=== PATIENT | male | born 1945 | race Caucasian/White ===

== ENCOUNTER 2017-01-21 12:20 | Emergency (ER) | payer OTHER ==
[~2017-01-21 12:20] MED LIST: ASPIRIN 81 LOW81 MG PO; CIALIS10 MG; COUMADIN5 MG PO; FLOMAX0.4 MG PO; KEPPRA500 MG PO; LISINOPRIL2.5 MG PO; LOVENOX30 MG/0.3 SC; LOVENOX80 MG/0.8 SC; MULTIPLE VITAMIN PO; VICODIN EQUIVAL1 TAB PO; VITAMIN C TR500 M1 PO
--- NOTE | 2017-01-21 14:25 | DIAGNOSTIC IMAGING REPORT ---
PROCEDURE: XR CHEST 2 VIEW INDICATION: COUGH TECHNIQUE: PA and lateral view. COMPARISON: Chest x-ray 02/05/2016 FINDINGS: Mild bibasilar parenchymal stranding, with progression on the left side. Cardiovascular structures are normal. Bony thorax is unremarkable. IMPRESSION: 1. Mild bibasilar scarring with new left basilar infiltrate/atelectasis
--- NOTE | 2017-01-21 14:38 | ED NURSING NOTES ---
Clinical Report - Nurses [facility] [address] [place] [address] 01/21/2017 12:22 Patient: ELISA AVILA TRIAGE Acuity: LEVEL 2. Chief Complaint: CHEST PAIN and NECK PAIN. Alert. No acute distress. SEPSIS SCREEN: Sepsis Screen. Negative (no infection suspected/documented). --12:40 Yesenia Muniz R.N. 12:31 01/21/17. BP: 113/66. HR: 67. RR: 18. O2 saturation: 97% on room air. Temp: 97.9 F (oral). Pain level now: 5/10. --12:40 Yesenia Muniz R.N. Weight: 112.4 kg stated. Height/Length: 74 inches Per Patient. BMI: 31.8. --12:38 Yesenia Muniz R.N. Medications Cialis Oral 5mg, daily. Flomax Oral. Lisinopril Oral 20 mg, 2x a day. --12:35 Yesenia Muniz R.N. LevETIRAcetam ER Oral, 2 x day. --12:36 Yesenia Muniz R.N. Hydrochlorothiazide Oral 25 mg, daily. --12:36 Yesenia Muniz R.N. Tamsulosin HCl Oral 0.4 mg, at bedtime. --12:37 Yesenia Muniz R.N. Xarelto Oral (Tablet 20 mg), daily. --12:37 Yesenia Muniz R.N. Medication/allergy information source: the patient. --12:40 Yesenia Muniz R.N. Allergies No Known Drug Allergy. --12:35 Yesenia Muniz R.N. History Arrived by private vehicle. Historian: patient. Accompanied by spouse. Primary physician (Dolores). This started last night. Describes the quality as sharp. Relates location as in the central chest area and neck. Notes pain level as 5/10 on arrival. He has had difficulty breathing. No nausea or vomiting. 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 SOCIAL HX: Current every day light tobacco smoker- less than 1/2 a pack per day. Heavy alcohol use; consumes liquor daily. No drug use. NUTRITIONAL RISK ASSESSMENT: The nutritional risk assessment revealed no deficiencies. FUNCTIONAL ASSESSMENT: Functional assessment: no impairments noted. LEARNING NEEDS ASSESSMENT: The learning needs assessment revealed no barriers. FALL RISK ASSESSMENT: Fall risk assessment completed. Risk factors identified include patient age greater than 65 years. Fall interventions initiated. Patient placed on stretcher. Side rails up x2. Brakes on Bed in low position. Call light in reach of patient. SKIN INTEGRITY ASSESSMENT: Skin integrity risk assessment completed. No skin integrity risk identified. --12:40 Yesenia Muniz R.N. PROBLEMS: Pulmonary Embolism. Heart Disease. BPH. Renal Colic. Hypertension. Nephrolithiasis. --12:37 Yesenia Muniz R.N. ADDITIONAL SURGERIES: Lithotripsy. Nephrolithiasis. --12:37 Yesenia Muniz R.N. Assessment GENERAL / NEURO / PSYCH: Alert. Oriented X 4. Appears in no acute distress. [place] Coma Scale: 15- eyes open spontaneously (4); best verbal response- oriented x 4 (5); best motor response- obeys commands (6). Patient appears calm and cooperative. RESPIRATORY: Respirations not labored. CVS: Normal sinus rhythm noted. Capillary refill less than 2 seconds. GI / : Abdomen soft and nontender. SKIN: Mucous membranes are pink. Skin is warm and dry. --12:40 Yesenia Muniz R.N. Interventions ID band on patient. To treatment room. Ambulatory. --12:40 Yesenia Muniz R.N. NURSING PROGRESS NOTES EKG time: (1240). EKG was performed by a tech and shown to the ED physician. Patient ready for evaluation- chart flagged and ED physician notified. --12:40 Yesenia Muniz R.N. Oxygen administered by nasal cannula at 2 liters. generation mechanic helper, pulse oximeter and NIBP monitor placed on patient; monitor alarms on. Patient gowned. Two patient identifiers checked. Checked patient name and birthdate. Call light placed in reach. Side rails up x 1. Bed placed in lowest position. Brakes of bed on. --12:41 Yesenia Muniz R.N. 12:41 01/21/2017 Site #1 started via IV in the left hand with an 20g angiocath, with aseptic technique and good blood return; one attempt. Blood drawn: rainbow set. Labeled in the presence of the patient and sent to the lab. Saline lock flushed with 10 mL saline. --12:41 Yesenia Muniz R.N. 12:56 01/21/2017 Started bag #1 1000 mL IV Fluids IV NS (Saline); at 999 mL/hr over 1 hour(s) via site #1 via IV pump. Allergies verified and confirmed 5 rights. IV patency established. IV site checked: no pain, redness, or swelling. IV flushed thoroughly pre- and post-medication administration. --12:56 Yesenia Muniz R.N. 12:57 01/21/2017 Aspirin PO 325 mg given. Allergies verified and confirmed 5 rights. --12:57 Yesenia Muniz R.N. Checked patient name and birthdate. Throat swab obtained for rapid strep; labeled in the presence of the patient and sent to lab. --13:17 Yesenia Muniz R.N. 13:49 01/21/17. Checked patient name and birthdate: patient confirmed urine collected with return of yellow-colored clear urine; sample sent to lab for urinalysis. Specimen labeled in the presence of the patient. --13:49 Yesenia Muniz R.N. 14:25 01/21/2017 IV Fluids IV NS Discontinued: bag #1 infused. Total amount infused: 1000 mL. IV patency established. IV site checked: no pain, redness, or swelling. IV flushed thoroughly. --14:25 Stephanie Quinonez R.N. 14:46 01/21/2017 Azithromycin PO 500 mg given. Allergies verified and confirmed 5 rights. --14:46 Yesenia Muniz R.N. DISPOSITION / DISCHARGE Departure time: 15:15 Jan 21 2017. Condition at departure: improved and stable. No learning barriers present. Discharge instructions provided and reviewed with the patient. Reviewed medication(s) side effects, precautions, dosing and course information. Prescription(s) given to the patient. Patient verbalized understanding. Written instructions provided in Khmer. The patient was discharged by the physician. He was discharged home and accompanied by spouse. He left the Emergency Department ambulatory and via private vehicle. Spouse driving. --15:18 Yesenia Muniz R.N. 15:18 01/21/17. BP: 125/56. HR: 64. RR: 12. O2 saturation: 96% on room air. --15:18 Yesenia Muniz R.N. 15:11 01/21/2017 Site #1 removed upon discharge. Catheter intact. Manual pressure and bandage applied. --15:26 Yesenia Muinz R.N. Locked/Released at 01/21/2017 15:26 by Yesenia Muniz R.N.
--- NOTE | 2017-01-21 14:38 | ED CLINICAL REPORT ---
Clinical Report - Physicians/Mid Levels [facility] [address] [place] [address] 01/21/2017 12:22 Patient: ELISA AVILA Time Seen: 12:43; initial patient contact. Arrived- By private vehicle. Historian- patient. HISTORY OF PRESENT ILLNESS Chief Complaint: CHEST DISCOMFORT. At its maximum, severity described as mild. When seen in the E.D., severity described as mild. Modifying factors. Not worsened by anything. Not relieved by anything. This started last night and is still present but is better now. Onset during light activity. It is described as "pain" and it is described as located in the central chest area and neck. No radiation. No nausea, vomiting, difficulty breathing or diaphoresis. Similar symptoms previously: None. Recent medical care: The patient was seen recently in a clinic. REVIEW OF SYSTEMS No fever, chills, pedal edema, calf pain or skin rash. He has had a sore throat and a cough. All systems otherwise negative, except as recorded above. PAST HISTORY Pulmonary Embolism. Heart Disease. BPH. Renal Colic. Hypertension. Nephrolithiasis. ADDITIONAL SURGERIES: Lithotripsy. Nephrolithiasis. Medications: Xarelto Oral (Tablet 20 mg), daily. Tamsulosin HCl Oral 0.4 mg, at bedtime. Hydrochlorothiazide Oral 25 mg, daily. LevETIRAcetam ER Oral, 2 x day. Cialis Oral 5mg, daily. Flomax Oral. Lisinopril Oral 20 mg, 2x a day. Allergies: No Known Drug Allergy. SOCIAL HISTORY Current every day smoker. Regular alcohol use. No drug use. ADDITIONAL NOTES The nursing notes have been reviewed. PHYSICAL EXAM Vital Signs: 01/21/2017 12:31 BP: 113/66. HR: 67. RR: 18. O2 saturation: 97%. Temp: 97.9 F. Pain level now: 5/10. Have been reviewed as normal. Appearance: Alert. Oriented X3. No acute distress. ENT: Mild generalized pharyngeal erythema with right tonsillar swelling and left tonsillar swelling. No right tonsillar exudate or left tonsillar exudate. The mucous membranes are not dry. Neck: Normal inspection. Neck supple. No lymphadenopathy. CVS: Normal heart rate and rhythm. Heart sounds normal. Respiratory: No respiratory distress. Mild rales in the left lung base posteriorly. No prolonged expiration. Skin: Skin warm and dry. Normal skin color. Extremities: No calf tenderness. No lower extremity edema. Neuro: Oriented X 3. LABS, X-RAYS, AND EKG EKG: EKG time: (1240). No acute process. No acute ischemia. Normal sinus rhythm. Rate: 68. Normal P waves. Normal LAURITA. Wide QRS- intraventricular conduction delay. RBBB. Normal axis. Normal QT and QTc. T wave inversion in lead V1, V2, V3 and V4 (unchanged from 02/05/16). EKG unchanged when compared with prior EKG. The study has been interpreted contemporaneously by me. The study has been independently viewed by me. The EKG appears to be a good tracing. Interpretation time: 1240. Chest X-ray: (. Mild bibasilar scarring with new left basilar infiltrate/atelectasis). Views: PA and lateral. Technique: good. The X-rays were independently viewed by me, interpreted by the radiologist and discussed with the radiologist. Prior films were not available for comparison. Laboratory Tests: UA-Culture if indicated: (LYNN: 01/21/2017 13:40) ( MsgRcvd 01/21/2017 14:01) Final results Test Result Flag Units (Reference) URINE COLOR YELLOW URINE APPEARANCE CLEAR URINE GLUCOSE NEGATIVE (NEGATIVE) URINE BILIRUBIN NEGATIVE (NEGATIVE) URINE KETONE NEGATIVE (NEGATIVE) URINE SPECIFIC GRAVITY 1.010 (1.010-1.030) URINE PH 5.5 (5.0-8.0) URINE PROTEIN NEGATIVE (NEGATIVE) URINE UROBILINOGEN 0.2 EU/dL (0.2-1.0) URINE NITRITE NEGATIVE (NEGATIVE) URINE BLOOD NEGATIVE (NEGATIVE) URINE LEUK ESTERASE NEGATIVE (NEGATIVE) URINE RBC NONE SEEN rbc/hpf (0-1) URINE WBC 0-1 wbc/hpf (0-1) URINE EPITHELIAL CELLS 0-1 EPI/hpf (0-5) URINE BACTERIA NONE SEEN (NONE SEEN) URINE COMMENT CULT NOT INDICATED URINE CULTURES ARE SET-UP BASED ON THE FOLLOWING CRITERIA:POSITIVE NITRITEPOSITIVE LEUKOCYTE ESTERASEGREATER THAN 10 WHITE BLOOD CELLSMODERATE (2+) OR GREATER BACTERIA CBC w Diff: (LYNN: 01/21/2017 12:50) ( [facility] [place] 01/21/2017 13:04) Final results Test Result Flag Units (Reference) WHITE BLOOD COUNT 12.4 H K/uL (4.5-11.5) RED BLOOD COUNT 5.24 M/uL (4.50-5.90) HEMOGLOBIN 15.8 gm/dL (13.5-17.5) HEMATOCRIT 47.1 % (41.0-53.0) MEAN CELL VOLUME 90 fL (80-100) MEAN CORPUSCULAR HGB 30 pg (26-34) MEAN CORPUSCULAR HGB CONC 34 g/dL (31-37) RED CELL DISTRIBUTION WIDTH 13.3 % (11.6-14.8) PLATELET COUNT 151 K/uL (150-400) NEUTROPHIL % 82.5 H % (50-75) LYMPH % 9.6 L % (25-40) MONO % 6.9 % (3-14) EOSINOPHIL % 0.6 % (0-4) BASOPHIL % 0.4 % (0-2) PT with INR: (LYNN: 01/21/2017 12:50) ( [facility] [place]21[place] 13:18) Final results Test Result Flag Units (Reference) INR 1.4 H (0.8-1.2) Low Intensity Therapy: INR 1.5-2.0 PT range 18.5-23.1Mod.Intensity Therapy: INR 2.0-3.0 PT range 23.1-31.5High Intensity Therapy: INR 2.5-3.5 PT range 27.4-35.5High Intensity Therapy 2: INR 3.0-4.0 PT range 31.5-39.3 APTT 28 SECONDS (24-34) D-DIMER QUANTITATIVE < 0.27 L ug/mLFEU (0.27-0.52) The primary value of this quantitative assay relates toits negative predictive value (i.e. exclusion) of pulmonaryembolism/deep vein thrombosis/DIC.Elevated levels of d-dimer may also occur with:, age, cancer, inflammation, liver disease,post-op, infection, hematoma, coronary disease, peripheralarteriopathy, bleeding disorders and thrombolytic treatment.Results should be correlated with other clinical andradiological data.Testing Methodology: Latex Immunoassay BNP: (LYNN: 01/21/2017 12:50) ( [facility] 01/21/2017 13:26) Final results Test Result Flag Units (Reference) B-TYPE NATRIURETIC PEPTIDE 11.9 pg/ml (5-100) CHEM 13 PANEL: (LYNN: 01/21/2017 12:50) ( [facility] 01/21/2017 13:22) Final results Test Result Flag Units (Reference) GLUCOSE 131 H mg/dL (70-110) BUN 31 H mg/dL (7-18) CREATININE 1.4 H mg/dL (0.6-1.3) Estimated GFR 53.25 mL/min Estimated GFR- >60 mL/min Note: Persistent reduction over 3 months in eGFR<60 mL/min/1.73 m2 defines CKD. Patients with eGFR values>=60 mL/min/1.73 m2 may also have CKD if evidence ofpersistent proteinuria. Additional information may be foundat www.kidney.org. SODIUM 137 mmol/L (136-145) POTASSIUM 4.5 mmol/L (3.5-5.1) CHLORIDE 101 mmol/L (98-107) CARBON DIOXIDE 28 mmol/L (21-32) CALCIUM 9.4 mg/dL (8.5-10.1) TOTAL PROTEIN 7.5 g/dL (6.4-8.2) ALBUMIN 4.0 g/dL (3.3-5.0) BILIRUBIN, TOTAL 1.1 H mg/dL (0.0-1.0) ALKALINE PHOSPHATASE 67 U/L (46-116) AST (SGOT) 7 L U/L (15-37) ALT (SGPT) 22 U/L (12-78) MAGNESIUM 2.0 mg/dL (1.8-2.4) CPK 61 U/L (24-260) TROPONIN I <0.05 ng/mL (0.00-1.5) TROPONIN REFERENCE RANGE:<0.1 NEGATIVE0.1-1.5 INDETERMINANT>1.5 POSITIVE Culture, Strep Screen: (LYNN: 01/21/2017 13:10) ( MsgRcvd 01/21/2017 13:38) Final results Test Result Flag Units (Reference) RAPID STREP SCREEN - THROAT DATE: 01/21/17 NEGATIVE SCREEN: RAPID STREP SCREEN NEGATIVE; CONFIRMATION TO FOLLOW . PROGRESS AND PROCEDURES Disposition: Discharged home in good and improved condition. Condition: good. CLINICAL IMPRESSION Bacterial and lobar pneumonia. Empiric antibiotics given in the ED and prescribed. No hypoxemia, respiratory failure or sepsis. Chronic seasonal allergic rhinitis. INSTRUCTIONS Your Current Medications: CONTINUE TAKING THE FOLLOWING MEDICATIONS: Cialis Oral : 5mg daily. Flomax Oral. Hydrochlorothiazide Oral : 25 mg daily. LevETIRAcetam ER Oral : 2 x day. Lisinopril Oral : 20 mg 2x a day. Tamsulosin HCl Oral : 0.4 mg at bedtime. Xarelto Oral : Tablet 20 mg, daily. Prescription Medications: Zithromax 250 mg tablets: take 1 orally every day for 4 days. Total course 4 days. No refills. Substitution is permissible. (Loading dose given in the ED) Flonase nasal spray: 2 sprays to each nostril daily. Dispense one (1) unit. One refill. Substitution is permissible Follow-up: Follow up with your doctor in about two days. Call for an appointment. Blood pressure screening was not performed during this visit because the patient has an active diagnosis of hypertension. (Electronically signed by Scott Balderas Dr. 01/21/2017 22:22)
--- NOTE | 2017-01-21 14:38 | ED ORDER SUMMARY ---
..... Patient: ELISA AVILA OrderSheet [facility] VisitID: [id number] [place] [address] 71y, M Registration Date/Time: 01/21/2017 ORDER SHEET Weight: 112.4 kg (stated) Allergies: No Known Drug Allergy GENERAL ORDERS: Cardiac Panel Stat (12:45 01/21/2017 Yanira Damon) (Ack 12:47 Lexi) (12:56 MWinterer R.N.) PT with INR Urgent (12:45 01/21/2017 Yanira Damon) (Ack 12:47 Lexi) (12:56 MWinterer R.N.) PTT Urgent (12:45 01/21/2017 Yanira Damon) (Ack 12:47 Lexi) (12:56 MWinterer R.N.) UA-Culture if indicated Urgent (12:45 01/21/2017 Yanira Damon) (Ack 12:47 Lexi) (13:49 MWinterer R.N.) BNP Urgent (12:45 01/21/2017 Yanira Damon) (Ack 12:47 Lexi) (12:56 MWinterer R.N.) D-Dimer Urgent (12:45 01/21/2017 Yanira Damon) (Ack 12:47 Lexi) (12:56 MWinterer R.N.) EKG - ER Stat (12:45 01/21/2017 Yanira Damon) (12:49 Lexi) Culture, Strep Screen Urgent (12:56 01/21/2017 Yanira Damon) (Ack 13:12 Lexi) (13:16 MWinterer R.N.) Chest 2V Urgent (13:48 01/21/2017 Yanira Damon) (14:04 Lexi) MEDICATION ORDERS: Aspirin PO 325 mg (Do not crush or chew, NOW) (12:45 01/21/2017 Yanira Damon) (Ack 12:49 MWinterer R.N.) (12:57 MWinterer R.N.) Azithromycin PO 500 mg (NOW) (14:34 01/21/2017 Yanira Damon) (Ack 14:42 MWinterer R.N.) (14:46 MWinterer R.N.) IV FLUIDS: IV NS : initial bolus none -, then 1000 mL/hr for X1 (NOW) (12:44 01/21/2017 Yanira Damon) (Ack 12:49 MWinterer R.N.) (12:56 MWinterer R.N.) ORDER SHEET NOTES: [Electronically signed by Yesenia Muniz R.N. (15:26 01/21/2017)] [Electronically signed by Scott Balderas Dr. (22:22 01/21/2017)] [Electronically locked/signed by Yesenia Muniz R.N. (15:01/21/2017)]
--- NOTE | 2017-01-21 14:38 | ED ORDER SUMMARY ---
..... Patient: ELISA AVILA OrderSheet [facility] VisitID: [id number] [place] [address] 71y, M Registration Date/Time: 01/21/2017 ORDER SHEET Weight: 112.4 kg (stated) Allergies: No Known Drug Allergy GENERAL ORDERS: Cardiac Panel Stat (12:45 01/21/2017 Yanira Damon) (Ack 12:47 Lexi) (12:56 MWinterer R.N.) PT with INR Urgent (12:45 01/21/2017 Yanira Damon) (Ack 12:47 Lexi) (12:56 MWinterer R.N.) PTT Urgent (12:45 01/21/2017 Yanira Damon) (Ack 12:47 Lexi) (12:56 MWinterer R.N.) UA-Culture if indicated Urgent (12:45 01/21/2017 Yanira Damon) (Ack 12:47 Lexi) (13:49 MWinterer R.N.) BNP Urgent (12:45 01/21/2017 Yanira Damon) (Ack 12:47 Lexi) (12:56 MWinterer R.N.) D-Dimer Urgent (12:45 01/21/2017 Yanira Damon) (Ack 12:47 Lexi) (12:56 MWinterer R.N.) EKG - ER Stat (12:45 01/21/2017 Yanira Damon) (12:49 Lexi) Culture, Strep Screen Urgent (12:56 01/21/2017 Yanira aDmon) (Ack 13:12 Lexi) (13:16 MWinterer R.N.) Chest 2V Urgent (13:48 01/21/2017 Yanira Damon) (14:04 Lexi) MEDICATION ORDERS: Aspirin PO 325 mg (Do not crush or chew, NOW) (12:45 01/21/2017 Yanira Damon) (Ack 12:49 MWinterer R.N.) (12:57 MWinterer R.N.) Azithromycin PO 500 mg (NOW) (14:34 01/21/2017 Yanira Damon) (Ack 14:42 MWinterer R.N.) (14:46 MWinterer R.N.) IV FLUIDS: IV NS : initial bolus none -, then 1000 mL/hr for X1 (NOW) (12:44 01/21/2017 Yanira Damon) (Ack 12:49 MWinterer R.N.) (12:56 MWinterer R.N.) ORDER SHEET NOTES: [Electronically signed by Yesenia Muniz R.N. (15:26 01/21/2017)] [Electronically signed by Scott Balderas Dr. (22:22 01/21/2017)] [Electronically locked/signed by Yesenia Muniz R.N. (15:01/21/2017)]
--- NOTE | 2017-01-21 22:22 | ED MAR SUMMARY ---
..... Medication Administration Record [facility] [address] [place] [address] Patient: ELISA AVILA Visit ID: [id number] 71y, M Weight: 112.4 kg Height/Length: 74 in BMI: 31.8 ALLERGIES: No Known Drug Allergy Start 12:56 01/21/2017 Yesenia Muniz R.N., Stop 14:25 01/21/2017 Stephanie Quinonez R.N. Medication Administered: IV NS (SALINE), Dose: IV Fluids over 1 hour(s), Rate: 999 mL/hr, Dispensed: 1000 mL bag, Site: #1 left hand. Medication Ordered: IV NS : initial bolus none -, then 1000 mL/hr for X1 (NOW). Given 12:57 01/21/2017 Yesenia Muniz R.N. Medication Administered: ASPIRIN [PO], Dose: 325 mg PO. Medication Ordered: Aspirin PO 325 mg (Do not crush or chew, NOW). Given 14:46 01/21/2017 Yesenia Muniz R.N. Medication Administered: AZITHROMYCIN [PO], Dose: 500 mg PO. Medication Ordered: Azithromycin PO 500 mg (NOW).
--- NOTE | 2017-01-21 22:22 | ED MED RECONCILIATION SUMMARY ---
Patient: ELISA AVILA Medication Reconciliation Report [facility] VisitID: [id number] [place] [address] 71y, M Registration Date/Time: 01/21/2017 Weight: 112.4 kg Height/Length: 74 in. BMI: 31.8 ALLERGIES: No Known Drug Allergy The patient's Home Medications are listed below: CONTINUE TAKING THE FOLLOWING MEDICATIONS: Cialis Oral 5mg, daily Flomax Oral Hydrochlorothiazide Oral 25 mg, daily LevETIRAcetam ER Oral, 2 x day Lisinopril Oral 20 mg, 2x a day Tamsulosin HCl Oral 0.4 mg, at bedtime Xarelto Oral (20 mg), daily The source(s) of the original Home Medication information: patient The following Medications were given to the patient in the Emergency Department: IV NS IV Fluids bolus 0, then 999 mL/hr, administered: 01/21/2017 12:56:00 PM Aspirin [PO] PO 325 mg, administered: 01/21/2017 12:57:00 PM Azithromycin [PO] PO 500 mg, administered: 01/21/2017 2:46:00 PM The following Medications were prescribed to the patient: Zithromax 250 mg tablets: take 1 orally every day for 4 days. Total course 4 days. No refills. Substitution is permissible.(Loading dose given in the ED) -- Scott Balderas Dr. Flonase nasal spray: 2 sprays to each nostril daily. Dispense one (1) unit. One refill. Substitution is permissible -- Scott Balderas Dr.
--- NOTE | 2017-01-21 22:22 | ED DISCHARGE INSTRUCTIONS ---
Patient: ELISA AVILA General Instructions [facility] VisitID: [id number] [place] [address] 71y, M Registration Date/Time: 01/21/2017 Bacterial and lobar pneumonia. Empiric antibiotics given in the ED and prescribed. No hypoxemia, respiratory failure or sepsis. Chronic seasonal allergic rhinitis. INSTRUCTIONS Your Current Medications: CONTINUE TAKING THE FOLLOWING MEDICATIONS: Cialis Oral : 5mg daily. Flomax Oral. Hydrochlorothiazide Oral : 25 mg daily. LevETIRAcetam ER Oral : 2 x day. Lisinopril Oral : 20 mg 2x a day. Tamsulosin HCl Oral : 0.4 mg at bedtime. Xarelto Oral : Tablet 20 mg, daily. Prescription Medications: Zithromax 250 mg tablets: take 1 orally every day for 4 days. Total course 4 days. No refills. Substitution is permissible. (Loading dose given in the ED) Flonase nasal spray: 2 sprays to each nostril daily. Dispense one (1) unit. One refill. Substitution is permissible Follow-up: Follow up with your doctor in about two days. Call for an appointment. Blood pressure screening was not performed during this visit because the patient has an active diagnosis of hypertension. ADDITIONAL INFORMATION Pneumonia (Adult) Pneumonia is an infection deep within the lung, in the small air sacs (alveoli). It may be due to a virus or bacteria and is usually treated with an antibiotic. Severe cases require treatment in the hospital. Milder cases can be treated at home. Symptoms usually start to improve during the first2 days of treatment. Home Care: Rest at home for the first 23 days or until you feel stronger. When resuming activity, dont let yourself become overly tired. Avoid exposure to cigarette smoke (yours or others). You may use acetaminophen (Tylenol) or ibuprofen (Motrin, Advil) to control fever or pain, unless another medicine was prescribed. [NOTE: If you have chronic liver or kidney disease or ever had a stomach ulcer or GI bleeding, talk with your doctor before using these medicines.] (Aspirin should never be used in anyone under 18 years of age who is ill with a fever. It may cause severe liver damage.) Your appetite may be poor so a light diet is fine. Keep well hydrated by drinking 68 glasses of fluids per day (water, sport drinks such as Gatorade, sodas without caffeine, juices, tea, soup, etc.). This will help loosen secretions in the lung, making it easier for you to cough up the phlegm (sputum). If you also have heart or kidney disease, check with your doctor before you drink extra amounts of fluids. Finish all antibiotic medicine prescribed, even if you are feeling better after a few days. Follow Up with your doctor in the next 23 days (or as advised) to be sure you are responding properly to the medicine. [NOTE: If you are age 65 or older, or if you have chronic lung disease (asthma, emphysema or COPD), we recommendthe pneumococcal vaccination and a yearlyinfluenzavaccination(flu-shot) every . Ask your doctor about this.] Get Prompt Medical Attention if any of the following occur: Not getting better within the first 48 hours of treatment Increasing shortness of breath or rapid breathing (over 25 breaths/minute) Coughing up blood or increasing chest pain with breathing Fever of 100.4F (38C) oral or higher, not better with fever medication Increasing weakness, dizziness or fainting Increasing thirst or dry mouth Sinus pain, headache or a stiff neck Chest pain not caused by coughing Nasal Allergy Nasal Allergy, also called Allergic Rhinitis occurs after exposure to pollen, molds, mildew, animal dander (scales from animal skin, hair and feathers), dust, smoke and fumes. (These are called allergens). When pollen causes a nasal allergy it is commonly called Hay Fever. When these particles contact the lining of the nose, eyes, eyelids, sinuses or throat, they cause the cells to release a chemical called histamine. Histamine may cause a watery discharge from the eyes or nose. It may also cause violent sneezing, nasal congestion, itching of the eyes, nose, throat and mouth. Prevention: Nasal allergy cannot be cured but symptoms can be reduced. Avoid or reduce exposure to the allergen when possible, by the following measures: POLLEN Stay indoors on hot windy days during pollen season Keep windows and doors closed Use an air conditioner with an electrostatic filter DUST, MOLD & MILDEW Follow these measures, especially in the bedroom: When cleaning use vacuum vocational rehab consultant, oiled mops and damp cloths; dont stir up the dust. Once a week clean the salgado, woodwork and floors with a damp mop and vacuum carpets. Once a year clean the bed frame and springs (do this outside). Cover the box springs with plastic. Do not use mattress pads. Remove stuffed chairs and rugs from the bedroom. Discard old moldy books, furniture and bedding. Use synthetic fabrics for furniture, curtains and bedding. Avoid quilts, comforters, and stuffed toys. ANIMAL DANDER Remove all indoor pets (except fish and reptiles). Avoid all contact with furry animals. Avoid down-stuffed pillows and coats. Some persons are also sensitive to wool and should avoid it. OTHER IRRITANTS Do not smoke and avoid the smoke of others. Some persons are sensitive to cosmetic powder, baby powder and powdered laundry detergents. Therefore, these powders should be avoided. Home Care: DECONGESTANT pills and sprays (Sudafed, NeoSynephrine, Afrin), reduce tissue swelling and watery discharge. Overuse of nasal decongestant sprays may make symptoms worse. Do not use these more often than recommended. ANTIHISTAMINES block the release of histamine during the allergic response. Antihistamines are more effective when taken BEFORE symptoms develop. Unless a prescription antihistamine was prescribed, you may take CLARITIN (loratadine). (Claritin is an pluf-vlu-tktwmbg antihistamine that does not cause drowsiness.) STEROID nasal sprays (Beconase, Vancenase, Nasalide) or oral steroids (Prednisone) may also be prescribed for more severe symptoms. These help to reduce the local inflammation which adds to the allergic response. If you have ASTHMA, pollen season may make your asthma symptoms worse. It is important that you use your asthma medicines as directed during this time to prevent or treat attacks. Some persons with asthma have a worsening of their asthma symptoms when taking antihistamines. If you notice this, stop the antihistamines and notify your doctor. Follow Up with your doctor or as directed by our staff if your symptoms are not improving with the treatment advised. Get Prompt Medical Attention if any of the following occur: Facial or sinus pain or colored drainage from the nose Severe headache or ear pain Fever of 100.4F (38C) or higher, or as directed by your healthcare provider Wheezing or trouble breathing (If you already know you have asthma, return if your asthma symptoms do not respond to the usual doses of your medicine) Cough with lots of colored sputum (mucus) Azithromycin Oral tablet What is this medicine? AZITHROMYCIN (az nora TORRES sin) is a macrolide antibiotic. It is used to treat or prevent certain kinds of bacterial infections. It will not work for colds, flu, or other viral infections. How should I use this medicine? Take this medicine by mouth with a full glass of water. Follow the directions on the prescription label. The tablets can be taken with food or on an empty stomach. If the medicine upsets your stomach, take it with food. Take your medicine at regular intervals. Do not take your medicine more often than directed. Take all of your medicine as directed even if you think your are better. Do not skip doses or stop your medicine early. Talk to your in store banker regarding the use of this medicine in children. Special care may be needed. What side effects may I notice from receiving this medicine? Side effects that you should report to your doctor or health student career development specialist as soon as possible: allergic reactions like skin rash, itching or hives, swelling of the face, lips, or tongue confusion, nightmares or hallucinations dark urine difficulty breathing hearing loss irregular heartbeat or chest pain pain or difficulty passing urine redness, blistering, peeling or loosening of the skin, including inside the mouth white patches or sores in the mouth yellowing of the eyes or skin Side effects that usually do not require medical attention (report to your doctor or health student career development specialist if they continue or are bothersome): diarrhea dizziness, drowsiness headache stomach upset or vomiting tooth discoloration vaginal irritation What may interact with this medicine? Do not take this medicine with any of the following medications: lincomycin This medicine may also interact with the following medications: amiodarone antacids cyclosporine digoxin magnesium nelfinavir phenytoin warfarin What if I miss a dose? If you miss a dose, take it as soon as you can. If it is almost time for your next dose, take only that dose. Do not take double or extra doses. Where should I keep my medicine? Keep out of the reach of children. Store at room temperature between 15 and 30 degrees C (59 and 86 degrees F). Throw away any unused medicine after the expiration date. What should I tell my health care provider before I take this medicine? They need to know if you have any of these conditions: kidney disease liver disease irregular heartbeat or heart disease an unusual or allergic reaction to azithromycin, erythromycin, other macrolide antibiotics, foods, dyes, or preservatives or trying to get breast-feeding What should I watch for while using this medicine? Tell your doctor or health student career development specialist if your symptoms do not improve. Do not treat diarrhea with over the counter products. Contact your doctor if you have diarrhea that lasts more than 2 days or if it is severe and watery. This medicine can make you more sensitive to the sun. Keep out of the sun. If you cannot avoid being in the sun, wear protective clothing and use sunscreen. Do not use sun lamps or tanning beds/booths. Fluticasone Propionate Nasal spray, solution What is this medicine? FLUTICASONE (floo TIK a sone) is a corticosteroid. It helps decrease inflammation in your nose. This medicine is used to treat the symptoms of allergies like sneezing, itching, and runny or stuffy nose. How should I use this medicine? This medicine is for use in the nose. Follow the directions on your prescription label. This medicine works best if used regularly. Do not use more often than directed. Make sure that you are using your nasal spray correctly. Ask you doctor or health care provider if you have any questions. Talk to your in store banker regarding the use of this medicine in children. While this drug may be prescribed for children as young as 4 years old for selected conditions, precautions do apply. What side effects may I notice from receiving this medicine? Side effects that you should report to your doctor or health student career development specialist as soon as possible: allergic reactions like skin rash, itching or hives, swelling of the face, lips, or tongue changes in vision flu-like symptoms white patches or sores in the mouth or nose Side effects that usually do not require medical attention (report to your doctor or health student career development specialist if they continue or are bothersome): burning or irritation inside the nose or throat cough headache nosebleed unusual taste or smell What may interact with this medicine? ketoconazole metyrapone some medicines for HIV vaccines What if I miss a dose? If you miss a dose, use it as soon as you remember. If it is almost time for your next dose, use only that dose and continue with your regular schedule. Do not use double or extra doses. Where should I keep my medicine? Keep out of the reach of children. Store at room temperature between 15 and 30 degrees C (59 and 86 degrees F). Throw away any unused medicine after the expiration date. What should I tell my health care provider before I take this medicine? They need to know if you have any of these conditions: infection, like tuberculosis, herpes, or fungal infection recent surgery on nose or sinuses taking corticosteroid by mouth an unusual or allergic reaction to fluticasone, steroids, other medicines, foods, dyes, or preservatives or trying to get breast-feeding What should I watch for while using this medicine? Visit your doctor or health student career development specialist for regular checks on your progress. Some symptoms may improve within 12 hours after starting use. Check with your doctor or health student career development specialist if there is no improvement in your condition after 3 weeks of use. Do not come in contact with people who have chickenpox or the measles while you are taking this medicine. If you do, call your doctor right away. You have been given the following additional information: Pneumonia (Adult) Allergic Rhinitis Azithromycin Oral tablet Fluticasone Propionate Nasal spray, solution (Electronically signed by Scott Balderas Dr. 01/21/2017 22:22)
--- NOTE | 2017-01-21 22:22 | ED MAR SUMMARY ---
..... Medication Administration Record [facility] [address] [place] [address] Patient: ELISA AVILA Visit ID: [id number] 71y, M Weight: 112.4 kg Height/Length: 74 in BMI: 31.8 ALLERGIES: No Known Drug Allergy Start 12:56 01/21/2017 Yesenia Muniz R.N., Stop 14:25 01/21/2017 Stephanie Quinonez R.N. Medication Administered: IV NS (SALINE), Dose: IV Fluids over 1 hour(s), Rate: 999 mL/hr, Dispensed: 1000 mL bag, Site: #1 left hand. Medication Ordered: IV NS : initial bolus none -, then 1000 mL/hr for X1 (NOW). Given 12:57 01/21/2017 Yesenia Muniz R.N. Medication Administered: ASPIRIN [PO], Dose: 325 mg PO. Medication Ordered: Aspirin PO 325 mg (Do not crush or chew, NOW). Given 14:46 01/21/2017 eYsenia Muniz R.N. Medication Administered: AZITHROMYCIN [PO], Dose: 500 mg PO. Medication Ordered: Azithromycin PO 500 mg (NOW).
--- NOTE | 2017-01-21 22:22 | ED MED RECONCILIATION SUMMARY ---
Patient: ELISA AVILA Medication Reconciliation Report [facility] VisitID: [id number] [place] [address] 71y, M Registration Date/Time: 01/21/2017 Weight: 112.4 kg Height/Length: 74 in. BMI: 31.8 ALLERGIES: No Known Drug Allergy The patient's Home Medications are listed below: CONTINUE TAKING THE FOLLOWING MEDICATIONS: Cialis Oral 5mg, daily Flomax Oral Hydrochlorothiazide Oral 25 mg, daily LevETIRAcetam ER Oral, 2 x day Lisinopril Oral 20 mg, 2x a day Tamsulosin HCl Oral 0.4 mg, at bedtime Xarelto Oral (20 mg), daily The source(s) of the original Home Medication information: patient The following Medications were given to the patient in the Emergency Department: IV NS IV Fluids bolus 0, then 999 mL/hr, administered: 01/21/2017 12:56:00 PM Aspirin [PO] PO 325 mg, administered: 01/21/2017 12:57:00 PM Azithromycin [PO] PO 500 mg, administered: 01/21/2017 2:46:00 PM The following Medications were prescribed to the patient: Zithromax 250 mg tablets: take 1 orally every day for 4 days. Total course 4 days. No refills. Substitution is permissible.(Loading dose given in the ED) -- Scott Balderas Dr. Flonase nasal spray: 2 sprays to each nostril daily. Dispense one (1) unit. One refill. Substitution is permissible -- Scott Balderas Dr.
== END 2017-01-21 15:15 | disposition home or self-care (01) ==
LOC: ED SRH 12:20
DX: J15.9 Unspecified bacterial pneumonia (principal); J30.2 Other seasonal allergic rhinitis; I10 Essential (primary) hypertension; F17.210 Nicotine dependence, cigarettes, uncomplicated; Z79.899 Other long term (current) drug therapy
CPT/HCPCS: 90004; 90100; 90154; 90159; 90616; 91320; 91556; 92610; 92720; 94001; 94060; 95059